=== PATIENT | male | born 1995 | race Caucasian/White ===

== ENCOUNTER 2016-08-09 01:30 | Emergency (ER) | payer OTHER ==
--- NOTE | 2016-08-09 01:53 | ED ---
General Adult HPI <Scar White - Last Filed: 08/09/16 04:21> - General Source: patient, RN notes reviewed, old records reviewed Mode of arrival: ambulatory Limitations: no limitations <Addie Kinsey - Last Filed: 08/09/16 20:50> - General Chief complaint: Urogenital Stated complaint: skin abcess Time Seen by Provider: 08/09/16 01:44 - History of Present Illness Initial comments: 21-year-old male with chief complaint of enlarged possible abscess over his left testicle and scrotum. Patient reports he noticed it started on Tuesday. He denies any fever or chills or redness over the area. Patient does not shave. Denies any difficulty with urinating or bowel movements. Denies any trauma. Patient states that he has no penile discharge or dysuria. (Addie Kinsey) - Related Data Previous Rx's Medication Instructions Recorded Sulfamethox-Tmp 800-160Mg [Bactrim 2 tab PO Q12HR #40 tab 08/09/16 DS 800-160 mg] Allergies Allergy/AdvReac Type Severity Reaction Status Date / Time No Known Allergies Allergy Verified 08/09/16 01:36 Review of Systems ROS Other: All systems not noted in ROS Statement are negative. <Scar White - Last Filed: 08/09/16 04:21> ROS Other: All systems not noted in ROS Statement are negative. <Addie Kinsey - Last Filed: 08/09/16 20:50> ROS Statement: Those systems with pertinent positive or pertinent negative responses have been documented in the HPI. Past Medical History Past Medical History: Asthma, Deep Vein Thrombosis (DVT), Musculoskeletal Disorder History of Any Multi-Drug Resistant Organisms: MRSA Date of last positivie culture/infection: 2011 MDRO Source:: RT AXILLA Past Surgical History: No Surgical Hx Reported Additional Past Surgical History / Comment(s): DENTAL PROCEDURE Past Anesthesia/Blood Transfusion Reactions: No Reported Reaction Past Psychological History: No Psychological Hx Reported Smoking Status: Current every day smoker Past Alcohol Use History: Occasional Past Drug Use History: Marijuana - Past Family History C Family Medical History: No Reported History Additional Family Medical History / Comment(s): CANCER IN GRANDPARENT <Addie Kinsey - Last Filed: 08/09/16 20:50> General Exam <Scar White - Last Filed: 08/09/16 04:21> Limitations: no limitations General appearance: alert, in no apparent distress Head exam: Present: atraumatic, normocephalic, normal inspection Eye exam: Present: normal appearance, PERRL, EOMI. Absent: scleral icterus, conjunctival injection, periorbital swelling ENT exam: Present: normal exam, mucous membranes moist Neck exam: Present: normal inspection. Absent: tenderness, meningismus, lymphadenopathy Respiratory exam: Present: normal lung sounds bilaterally. Absent: respiratory distress, wheezes, rales, rhonchi, stridor Cardiovascular Exam: Present: regular rate, normal rhythm, normal heart sounds. Absent: systolic murmur, diastolic murmur, rubs, gallop, clicks GI/Abdominal exam: Present: soft, normal bowel sounds. Absent: distended, tenderness, guarding, rebound, rigid exam: Present: testicular tenderness (Left-sided testicular tenderness. Area of what appears to be fluctuance over the superior testicle. No evidence of erythema.), scrotal swelling. Absent: normal inspection, vertical testicular lie, circumcision Extremities exam: Present: normal inspection, full ROM, normal capillary refill. Absent: tenderness, pedal edema, joint swelling, calf tenderness Back exam: Present: normal inspection Neurological exam: Present: alert, oriented X3, CN II-XII intact Psychiatric exam: Present: normal affect, normal mood Skin exam: Present: warm, dry, intact, normal color. Absent: rash <Addie Kinsey - Last Filed: 08/09/16 20:50> - General Exam Comments Initial Comments: 21-year-old male. No acute distress. (Addie Kinsey) Medical Decision Making <Scar White - Last Filed: 08/09/16 04:21> - Radiology Data Radiology results: report reviewed <Addie Kinsey - Last Filed: 08/09/16 20:50> - Medical Decision Making Patient was reevaluated by myself, Dr. White. Patient does have approximately 2 cm of swelling left proximal scrotum that is extremely tender. Patient states it just started a couple of days ago. No obvious abscess. Ultrasound is inconclusive. Attempted needle aspiration without success. Attempted anesthesia for I&D. Patient is unable to tolerate local anesthesia and will not hold still to perform procedure. It is felt at this time that risk of injury to myself or patient is too high to continue with this procedure. Patient will be placed on antibiotics and advised close follow-up with urology. If symptoms worsen patient is advised that he may need to go to surgery for I& D. (Scar White) 21-year-old male with chief complaint of enlarged possible abscess over his left testicle and scrotum. Patient reports he noticed it started on Tuesday. He denies any fever or chills or redness over the area. Patient does not shave. Denies any difficulty with urinating or bowel movements. Patient urinalysis is negative for signs of infection. Scrotum US was preformed and shows an area of 2cm fluctuence, but no obvious abscess. US is inconclusive of diagnosis for the mass. Discussed case with Dr. White, whom attempted to aspirate and incise and drain the area. Patient would not tolerate the procedure. Patient will be started on 2 tablets Bactrim DS BID, and advised to follow up with urologist button breaker. Discussed if it worses that he may need surgery to incise and drain the area under anesthesia. Patient agrees with treatment plan and will comply. (Addie Kinsey) - Lab Data Lab Results 08/09/16 Range/Units 01:50 Urine Color Yellow Urine Appearance Turbid (Clear) Urine pH 7.0 (5.0-8.0) Ur Specific [place] 1.019 (1.001-1.035) Urine Protein Trace H (Negative) Urine Glucose (UA) Negative (Negative) Urine Ketones Negative (Negative) Urine Blood Negative (Negative) Urine Nitrite Negative (Negative) Urine Bilirubin Negative (Negative) Urine Urobilinogen 2.0 (<2.0) mg/dL Ur Leukocyte Esterase Negative (Negative) Urine RBC 2 (0-5) /hpf Urine WBC 0 (0-5) /hpf Urine WBC Clumps [employer] Amorphous Sediment Rare H (None) /hpf Urine Yeast (Budding) [employer] - Radiology Data No evidence of testicular torsion or acute epidydymitis. Complex area superficial to test within left scrotum where patient is having pain and feels lump. Area measure approximately 2.9 by 1.6 by 1.5 cm with peripheral vascularity. This may represent abscess hematoma or other etiology. Scrotal mass less likely although not entirely excluded. recommended clinical correlation and follow up ultrasound if symptoms persist following treatment. Trace hydroceles bilaterally. (Addie Kinsey) Disposition <Scar White - Last Filed: 08/09/16 04:21> Time of Disposition: 04:12 <Addie Kinsey - Last Filed: 08/09/16 20:50> Clinical Impression: Scrotum, abscess Disposition: HOME SELF-CARE Condition: Good Instructions: Testicle Pain (ED), Abscess (ED) Additional Instructions: Patient advised to monitor for any worsening signs of infection. Follow-up with a urologist. Take antibiotics as prescribed. Return to the emergency department if any alarming signs or symptoms occur. Prescriptions: Sulfamethox-Tmp 800-160Mg [Bactrim DS 800-160 mg] 2 tab PO Q12HR #40 tab Referrals: None,Stated [Primary Care Provider] - 1-2 days Gustabo Husain MD [STAFF PHYSICIAN] - 1-2 days
[2016-08-09 02:07] LABS: Appearance,Urine Turbid (Clear); Bilirubin,Urine Negative (Negative); Glucose,Urine (UA) Negative (Negative); Ketones,Urine Negative (Negative); Leukocyte Esterase,Urine Negative (Negative); Nitrite,Urine Negative (Negative); Protein,Urine Trace (Negative); Specific Gravity,Urine 1.019 (1.001-1.035); UA Billing (MACRO vs. MICRO) MICRO
[2016-08-09 02:08] VITALS: TEMP 98.3
[2016-08-09 02:12] LABS: Amorphous Sediment,Urine Rare /hpf; Particle Count 4634; RBC,Urine 2 /hpf (0-5)
[2016-08-09 02:18] LABS: WBC,Urine 0 /hpf (0-5)
--- NOTE | 2016-08-09 03:56 | US ---
EXAM: US Scrotum CLINICAL HISTORY: Tuesday found a left scrotal lump that has gotten bigger and more painful. Patient admitted getting hit in the scrotum in May with a football. TECHNIQUE: Real-time ultrasound of the scrotum with color Doppler and image documentation. COMPARISON: No relevant prior studies available. FINDINGS: Right testicle: Right testis measures 3.6 x 2.3 x 3.7 cm. Normal symmetric color flow and waveforms are demonstrated in the right testis. No evidence of testicular torsion. Left testicle: Left testis measures 3.7 x 1.6 x 3.3 cm. Normal symmetric color flow and waveforms are demonstrated in the left testis. No evidence of testicular torsion. Epididymides: Right epididymis measures 1.0 cm. Left epididymis measures 1.0 cm. Normal symmetric color flow in the epididymides. Scrotum: Complex area superficial to testes within the left scrotum where patient is having pain and feels lump. Area measures approximately 2.9 x 1.6 x 1.5 cm with peripheral vascularity. Trace hydroceles bilaterally. No varicoceles. IMPRESSION: 1. No evidence of testicular torsion or acute epididymitis. 2. Complex area superficial to testes within the left scrotum where patient is having pain and feels lump. Area measures approximately 2.9 x 1.6 x 1.5 cm with peripheral vascularity. This may represent abscess, hematoma or other etiology. Scrotal mass less likely although not entirely excluded. Recommend clinical correlation and follow-up ultrasound if symptoms persist following treatment. 3. Trace hydroceles bilaterally.
[2016-08-09] MEDS ORDERED: SULFAMETH-TMP DS STARTER PACK 2 TAB BTL PO STA (04:13)
[2016-08-09 04:20] VITALS: BP 129/79; PULSE 87; RESP 18
== END 2016-08-09 04:19 | disposition home or self-care (01) ==
LOC: EC 01:30
DX: N49.2 Inflammatory disorders of scrotum (principal); F17.200 Nicotine dependence, unspecified, uncomplicated
CPT/HCPCS: 76870; 81001; 87491; 87591; 93975; 99284